=== PATIENT | male | born 1985 | race Two or more races ===

== ENCOUNTER 2022-11-09 10:20 | Inpatient (IN) ==
[2022-11-09] MEDS ORDERED: SODIUM CHLORIDE 0.9% 500 ML IV STA (10:28)
--- NOTE | 2022-11-09 10:38 | Emergency Department Note ---
Impression & Plan Acute appendicitis with localized peritonitis, Ileus due to infection, EVON (acute kidney injury) ED Provider Note Provider: Jules Hernandez MD DATE OF SERVICE: 11/09/2022 CHIEF COMPLAINT: Abdominal pain, nausea vomiting diarrhea HISTORY OF PRESENT ILLNESS: Patient is a 37-year-old gentleman senting here with referred from the [facility] today due to mid to lower abdominal discomfort developing over the past 4 days. Was following with the [facility] due to elevated blood pressure noted last week on exam. Has been trying to change and improve his diet. States Sunday started with epigastric pain with some radiation to the left lower abdomen. Then about a been constipated took a laxative. Has been having daily none bloody diarrhea since and having episodes of nausea and vomiting. No recent travel reported. Pain has improved some. Checked in again with the [facility] doctors today who did blood work and an x- ray and given some dilation the x-ray as well as an elevated white blood cell count was sent here for further testing. Denies any trauma. Denies significant urinary symptoms. Did use a bit of Aleve for pain which has helped a little bit. No significant testicular pain reported. PAST MEDICAL HISTORY: As noted above MEDICATIONS: Not on current home medications SOCIAL HISTORY: , lives at home PHYSICAL EXAM: GENERAL: alert and oriented in no acute distress on stretcher Head: normocephalic and atraumatic EYES: No injection, discharge or icterus. NECK: Trachea midline. LUNGS: Airway patent. No retractions. Breath sounds clear with good air entry bilaterally. HEART: Regular rate and rhythm. No chest wall tenderness ABDOMEN: Soft mildly diffusely tender and somewhat bloated. No masses appreciated. SKIN: Acyanotic, warm, slightly diaphoretic without rashes EXTREMITIES: Without swelling, tenderness or deformity NEUROLOGICAL: No focal deficits. No aphasia. No facial droop or slurred speech. EK bpm normal sinus rhythm. No PVC or PAC. No acute ST segment elevation with some inferior lateral T wave flattening and inversions noted. QTc 444. CONTINUOUS CARDIAC MONITORING: was ordered and showed a heart rate of 80s-90s bpm in normal sinus rhythm PDMP was checked without noted issue. Patient's laboratory studies and imaging reviewed. Differential includes Appendicitis, testicular torsion, infections, diverticulitis, UTI, obstruction, mesenteric ischemia, aortic pathology, inflammatory bowel disease, renal colic, PUD, pancreatitis, biliary pathology, hernia, volvulus, constipation, as well as other pathologies. IMPRESSION/MEDICAL DECISION MAKING: Discussed with case management obtained epic [facility] [facility] records from today including blood work with a CBC today showing white count of 19. Will send for CT scan given his pain complaints and the low white blood cell count. Given some IV fluid for hydration as he not been eating or drinking as well according to his . Pain has been decreasing but given the leukocytosis concern obviously for intra-abdominal process. Blood work here confirms a leukocytosis of almost 18 without anemia. Normal platelet count. Slight hyponatremia of 131 with an elevated creatinine of 2.35 which is new in nature. CT scan changed to noncontrast. No evidence of hepatitis or pancreatitis based on laboratory studies. EKG and troponin sent with some nonspecific T wave changes on EKG and normal troponin. Doubt ACS. CT scan does return with evidence of mid to distal appendicitis likely as well as some reactive ileal dilation and possible small bowel obstruction and in this clinical context question some component of ileus related to the inflammation. Discussed with the general surgery team. They evaluated him and took him to the OR for further care. DIAGNOSIS: Acute appendicitis, acute kidney injury, ileus DISPOSITION: General surgery evaluated and took him to the OR for further care. Past Med/Surg History Medical History Acute appendicitis with localized peritonitis Ileus due to infection Morbid obesity Social History Smoking Status: Current every day smoker Tobacco Type: Cigarettes Preferred Language: Uzbek Feels Safe at Home: Yes Allergies Allergies Allergy/AdvReac Type Severity Reaction Status Date / Time No Known Drug Allergies AdvReac Verified 11/09/22 12:35 Results & Data (ED) Vital Signs Vital Signs - 24 hr 11/09/22 10:22 11/09/22 10:29 11/09/22 10:50 Temperature 36.6 C Temperature Source Oral Pulse Rate 99 H Pulse Rate [Apical] 94 H Pulse Rate [Finger] Pulse Rhythm [Finger] Pulse Strength [Finger] Respiratory Rate 20 18 Respiratory Effort / Characteristics Non-Labored Respiratory Depth Normal Respiratory Pattern Regular Blood Pressure 139/94 Blood Pressure [Left Arm] 152/94 H Blood Pressure Mean 109 Blood Pressure Mean [Left Arm] 113 Blood Pressure Position [Left Arm] Pulse Oximetry 98 98 98 Oxygen Delivery Method Room Air Room Air Room Air Sepsis Recent Fever Within 48 Hours No Sepsis New/Unexplained Change in Mental Status No Sepsis Action Taken by Nursing No Action Required 11/09/22 12:23 11/09/22 12:36 11/09/22 13:15 Temperature 37 C Temperature Source Oral Pulse Rate 89 Pulse Rate [Apical] 92 H Pulse Rate [Finger] 83 Pulse Rhythm [Finger] Regular Pulse Strength [Finger] Normal Respiratory Rate 18 18 Respiratory Effort / Characteristics Non-Labored Spontaneous Respiratory Depth Normal Respiratory Pattern Regular Blood Pressure Blood Pressure [Left Arm] 152/87 H 155/88 H Blood Pressure Mean Blood Pressure Mean [Left Arm] 108 110 Blood Pressure Position [Left Arm] Sitting Pulse Oximetry 97 97 Oxygen Delivery Method Room Air Room Air Sepsis Recent Fever Within 48 Hours Sepsis New/Unexplained Change in Mental Status Sepsis Action Taken by Nursing Laboratory Data 11/09/22 10:45 11/09/22 10:45 Lab Results 11/09/22 11/09/22 11/09/22 Range/Units 10:45 10:45 11:24 WBC 17.99 H (4.8-10.8) K/ul RBC 6.43 H (4.70-6.10) M/uL Hgb 15.5 (14.0-18.0) g/dl Hct 47.3 (42.0-52.0) % MCV 73.6 L (80.0-100.0) fL MCH 24.1 L (25.0-34.0) pg MCHC 32.8 (32.0-36.0) g/dL RDW Std Deviation 37.3 (36.4-46.3) fL RDW Coeff of Jossie 15.0 H (11.5-14.5) % Plt Count 249 (130-400) K/uL MPV 8.6 L (9.4-12.4) fL Immature Gran % (Auto) 0.6 % Neut % (Auto) 87.1 % Lymph % (Auto) 5.6 % [place] % (Auto) 6.3 % Eos % (Auto) 0.1 % Baso % (Auto) 0.3 % Neut # (Auto) 15.66 H (1.40-6.50) K/uL Lymph # (Auto) 1.01 L (1.2-3.4) K/uL [place] # (Auto) 1.14 H (0.11-0.59) K/uL Eos # (Auto) 0.02 (0-0.50) K/uL Baso # (Auto) 0.05 (0-0.2) K/uL Immature Gran # (Auto) 0.11 (0.01-0.20) K/uL Sodium 131 L (136-145) mmol/L Potassium 4.4 (3.5-5.1) mmol/L Chloride 94 L (98-107) mmol/L Carbon Dioxide 26 (21-32) mmol/L Anion Gap 11 (3-11) BUN 26 H (6-23) mg/dl Creatinine 2.35 H (0.6-1.4) mg/dl Est Cr Clr Drug Dosing 58.0 ml/min Est GFR ( Amer) 39.2 ml/min Est GFR (Non-Af Amer) 33.8 ml/min BUN/Creatinine Ratio 11.1 (10-20) Glucose 130 H (70-99(Fasting)) mg/dl Calcium 10.2 (8.6-10.3) mg/dl Total Bilirubin 0.9 (0.2-1.0) mg/dl AST 11 L (13-39) U/L ALT 13 (7-52) U/L Alkaline Phosphatase 73 (34-104) U/L Troponin I High Sens 11.6 (0-20) pg/ml Total Protein 8.3 (6.0-8.3) gm/dl Albumin 4.5 (3.4-5.0) gm/dl Globulin 3.8 (2.5-4.0) gm/dl Albumin/Globulin Ratio 1.2 (0.9-2) Lipase 4 L (11-82) U/L SARS-CoV-2, RNA, NAAT NEGATIVE (NEGATIVE) Administered Medications Discontinued Medications Sodium Chloride (Nss) 500 mls @ 999 mls/hr IV .Q31M STA Stop: 11/09/22 10:58 Last Infusion: 11/09/22 11:30 Dose: 0 mls/hr Documented By: Admin: 11/09/22 10:51 Dose: 999 mls/hr Documented By: OL Sodium Chloride (Nss 1000ml) 1,000 mls @ 999 mls/hr IV .Q1H1M ONE Stop: 11/09/22 13:17 Last Admin: 11/09/22 12:23 Dose: 999 mls/hr Documented By: OL Imaging Data Radiologist's Impression: Abdomen/Pelvis CT 11/09/22 11:[address] WITHOUT CONTRAST CT DOSE: 1767.01 mGy.cm HISTORY: Right lower quadrant pain, elevWBC, EVON, n/v/d TECHNIQUE: Multiaxial CT images of the abdomen and pelvis were performed without contrast. A dose lowering technique was utilized adhering to the principles of ALARA. COMPARISON STUDY: None. FINDINGS: Small right basilar linear densities consistent with subsegmental atelectasis. The left lung base is clear. No pneumoperitoneum. No pneumatosis. No acute fractures identified. Mild hepatic steatosis. The unenhanced gallbladder, pancreas, spleen, adrenal glands, and left kidney are unremarkable. There are 2 hypodense lesions within the right kidney measuring up to 1 cm. These are incompletely characterized on this noncontrast study but statistically represent cysts. Normal caliber abdominal aorta. There is a left circumaortic renal vein. No retroperitoneal or pelvic lymphadenopathy. The bladder is unremarkable. No pelvic free fluid. Inflammatory changes/fat stranding noted within the right lower quadrant. There is suggestion of a small appendicolith within the base of the appendix on image 267. The mid to distal appendix is fluid-filled and distended up to 12 mm. There is mild periappendiceal inflamm atory change. Therefore, this likely represents an acute appendicitis. Mild thickening of multiple distal ileal loops within the right lower quadrant which may be reactive to the acute appendicitis. One of the thickened distal ileal loops on image 286 within the right lower quadrant results in the transition point of the small bowel obstruction. The bowel proximal to this transition point is distended and filled with gas and fluid measuring up to 4.4 cm in diameter. IMPRESSION: 1. There is suggestion of a small appendicolith within the base of the appendix. The mid to distal appendix is fluid-filled and distended up to 12 mm. There is mild periappendiceal inflammatory change. Therefore, this likely represents an acute appendicitis. 2. Mild thickening of multiple distal ileal loops within the right lower quadrant which may be reactive to the acute appendicitis. One of the thickened distal ileal loops within the right lower quadrant results in the transition point of the small bowel obstruction. ACT 112: Negative or not required by law. Electronically signed by: Irving Shi M.D. 11/09/2022 12:10 PM Discharge Plan Visit Data Chief Complaint: Abdominal Pain Stated Complaint: ABDOMINAL PAIN ED Provider: Jules Hernandez Discharge Problem: Acute appendicitis with localized peritonitis, Ileus due to infection, EVON (acute kidney injury) Patient Disposition: Being Evaluated by Surgeon
[2022-11-09 10:59] LABS: Basophils # (auto) 0.05 K/uL (0-0.2); Basophils % (auto) 0.3 %; Eosinophils # (auto) 0.02 K/uL (0-0.50); Eosinophils % (auto) 0.1 %; Hematocrit (blood only) 47.3 % (42.0-52.0); Hemoglobin 15.5 g/dl (14.0-18.0); Immature Granulocytes # (auto) 0.11 K/uL (0.01-0.20); Immature Granulocytes % (auto) 0.6 %; Lymphocytes # (auto) 1.01 K/uL (1.2-3.4); Lymphocytes % (auto) 5.6 %; Mean Corpuscular Hemoglobin 24.1 pg (25.0-34.0); Mean Corpuscular Hgb Conc 32.8 g/dL (32.0-36.0); Mean Corpuscular Volume 73.6 fL (80.0-100.0); Mean Platelet Volume 8.6 fL (9.4-12.4); Monocytes # (auto) 1.14 K/uL (0.11-0.59); Monocytes % (auto) 6.3 %; Neutrophils # (auto) 15.66 K/uL (1.40-6.50); Neutrophils % (auto) 87.1 %; Platelet Count 249 K/uL (130-400); RDW Standard Deviation 37.3 fL (36.4-46.3); Red Blood Count 6.43 M/uL (4.70-6.10); White Blood Count 17.99 K/ul (4.8-10.8)
[2022-11-09 11:13] LABS: Albumin Globulin Ratio 1.2 (0.9-2); Albumin Level 4.5 gm/dl (3.4-5.0); BUN Creatinine Ratio 11.1 (10-20); Bilirubin,Total 0.9 mg/dl (0.2-1.0); Calcium 10.2 mg/dl (8.6-10.3); Est GFR (African American) 39.2 ml/min; Est GFR (Non-African American) 33.8 ml/min; Globulin 3.8 gm/dl (2.5-4.0); Potassium 4.4 mmol/L (3.5-5.1); Total Protein 8.3 gm/dl (6.0-8.3)
[2022-11-09 11:19] LABS: Troponin I High Sensitivity 11.6 pg/ml (0-20)
--- NOTE | 2022-11-09 12:11 | CT Scan Report ---
ABDOMEN AND PELVIS CT WITHOUT CONTRAST CT DOSE: 1767.01 mGy.cm HISTORY: Right lower quadrant pain, elevWBC, EVON, n/v/d TECHNIQUE: Multiaxial CT images of the abdomen and pelvis were performed without contrast. A dose lo wering technique was utilized adhering to the principles of ALARA. COMPARISON STUDY: None. FINDINGS: Small right basilar linear densities consistent with subsegmental atelectasis. The left alcon g base is clear. No pneumoperitoneum. No pneumatosis. No acute fractures identified. Mild hepatic isidro atosis. The unenhanced gallbladder, pancreas, spleen, adrenal glands, and left kidney are unremarkabl e. There are 2 hypodense lesions within the right kidney measuring up to 1 cm. These are incompletely characterized on this noncontrast study but statistically represent cysts. Normal caliber abdominal aorta. There is a left circumaortic renal vein. No retroperitoneal or pelvic lymphadenopathy. The emanuel dder is unremarkable. No pelvic free fluid. Inflammatory changes/fat stranding noted within the right lower quadrant. There is suggestion of a small appendicolith within the base of the appendix on imag e 267. The mid to distal appendix is fluid-filled and distended up to 12 mm. There is mild periappend iceal inflammatory change. Therefore, this likely represents an acute appendicitis. Mild thickening o f multiple distal ileal loops within the right lower quadrant which may be reactive to the acute appe ndicitis. One of the thickened distal ileal loops on image 286 within the right lower quadrant result s in the transition point of the small bowel obstruction. The bowel proximal to this transition point is distended and filled with gas and fluid measuring up to 4.4 cm in diameter. IMPRESSION: 1. There is suggestion of a small appendicolith within the base of the appendix. The mid to distal ap pendix is fluid-filled and distended up to 12 mm. There is mild periappendiceal inflammatory change. Therefore, this likely represents an acute appendicitis. 2. Mild thickening of multiple distal ileal loops within the right lower quadrant which may be reacti ve to the acute appendicitis. One of the thickened distal ileal loops within the right lower quadrant results in the transition point of the small bowel obstruction. ACT 112: Negative or not required by law. Electronically signed by: Irving Shi M.D. 11/09/2022 12:10 PM
[2022-11-09] MEDS ORDERED: SODIUM CHLORIDE 0.9% 1000ML 1,000 ML IV ONE ×2 (12:17→12:29)
[2022-11-09] MEDS ORDERED: PIPERACILLIN/TAZOBACTAM 4.5 GM/120 ML BAG IV ONE (12:29)
--- NOTE | 2022-11-09 12:29 | Electrocardiogram Report ---
Test Reason : Blood Pressure : / mmHG Vent. Rate : 093 BPM Atrial Rate : 093 BPM P-R Int : 142 ms QRS Dur : 094 ms QT Int : 354 ms P-R-T Axes : 041 043 134 degrees QTc Int : 440 ms Normal sinus rhythm Left atrial enlargement Abnormal ECG No previous ECGs available Confirmed by Sylvester Branch ([id number]) on 11/09/2022 12:28:59 PM Referred By: Carlos Lynch Confirmed By:Sylvester Branch
[2022-11-09] MEDS ORDERED: fentaNYL citrate PF 100 MCG/2 ML VIAL ONE ×3 (12:48→15:30)
[2022-11-09] MEDS ORDERED: MIDAZOLAM HCL 1 MG/ML 2ML VIAL ONE (12:48)
[2022-11-09] MEDS ORDERED: SUCCINYLCHOLINE CHLORIDE 20 MG/ML 10 ML VIAL IV ONE (12:58)
[2022-11-09] MEDS ORDERED: LIDOCAINE 2% MPF LOCAL 5 ML VIAL ONE (12:58)
[2022-11-09] MEDS ORDERED: ONDANSETRON INJ 2 MG/ML 2 ML VIAL ONE (12:58)
[2022-11-09] MEDS ORDERED: DEXAMETHASONE SOD INJ 4 MG/ML VIAL ONE (12:58)
[2022-11-09] MEDS ORDERED: ROCURONIUM BROMIDE 10 MG/ML 5 ML VIAL IV ONE ×3 (12:58→14:54)
[2022-11-09] MEDS ORDERED: PROPOFOL IV EMULSION 10 MG/ML 20 ML VIAL IV ONE (12:58)
--- NOTE | 2022-11-09 13:02 | History & Physical Report ---
Date of Service November 09, 2022 Assessment & Plan (1) Acute appendicitis with localized peritonitis: Plan: 37 morbidly obese male with appendicitis. Reactive ileus vs obstruction. Some concern for perforation. plan for laparoscopic appendectomy risks discussed to include but not limited to bleeding, infection, open surgery, abscess, damage to surrounding structures, need for future or more extensive surgery, prolonged ileus, and risks of anesthesia. pre op abx will keep overnight, possibly longer (2) Morbid obesity: (3) Ileus due to infection: History of Present Illness Primary Care Provider: Carlos Lynch PA-C 37 y/o obese male presented with abdominal pain. Started Sunday, worsened over past few days. Some nausea. Outpatient eval at [facility] showed kub with dilated bowel and wbc 19, referred to ED. No prior surgeries, no prior episodes. BMI 41. Last ate a tangerine before 9 am. Allergies Allergy/AdvReac Type Severity Reaction Status Date / Time No Known Drug Allergies AdvReac Verified 11/09/22 12:35 Past Med/Surg History Medical History (Updated 11/09/22 @ 12:59 by Shaheed Bray DO, FACS) Acute appendicitis with localized peritonitis Ileus due to infection Morbid obesity Social History Smoking Status: Current every day smoker Tobacco Type: Cigarettes Preferred Language: Jordanian Feels Safe at Home: Yes Physical Exam Constitutional: WD/WN, vitals as above + morbidly obese Respiratory: normal respiratory effort, lungs clear to auscultation Cardiovascular: RRR, no murmur, no edema Gastrointestinal (Abdomen): Percussion/Palpation: + abdomen tender (RLQ) and abdomen soft; no guarding, abdomen not rigid and no hernia Results & Data Results & Data Vital Signs (Past 12 Hours) Vital Signs Temp Pulse Pulse Resp BP BP Pulse Ox 11/09/22 12:36 89 11/09/22 12:23 92 H 18 152/87 H 97 11/09/22 10:50 94 H 18 152/94 H 98 11/09/22 10:29 98 11/09/22 10:22 36.6 C 99 H 20 139/94 98 O2 Del Method 11/09/22 12:36 11/09/22 12:23 Room Air 11/09/22 10:50 Room Air 11/09/22 10:29 Room Air 11/09/22 10:22 Room Air Laboratory Results Laboratory Results - last 24 hr 11/09/22 11/09/22 11/09/22 10:45 10:45 11:24 WBC 17.99 H RBC 6.43 H Hgb 15.5 Hct 47.3 MCV 73.6 L MCH 24.1 L MCHC 32.8 RDW Std Deviation 37.3 RDW Coeff of Jossie 15.0 H Plt Count 249 MPV 8.6 L Immature Gran % (Auto) 0.6 Neut % (Auto) 87.1 Lymph % (Auto) 5.6 [place] % (Auto) 6.3 Eos % (Auto) 0.1 Baso % (Auto) 0.3 Neut # (Auto) 15.66 H Lymph # (Auto) 1.01 L [place] # (Auto) 1.14 H Eos # (Auto) 0.02 Baso # (Auto) 0.05 Immature Gran # (Auto) 0.11 Sodium 131 L Potassium 4.4 Chloride 94 L Carbon Dioxide 26 Anion Gap 11 BUN 26 H Creatinine 2.35 H Est Cr Clr Drug Dosing 58.0 Est GFR ( Amer) 39.2 Est GFR (Non-Af Amer) 33.8 BUN/Creatinine Ratio 11.1 Glucose 130 H Calcium 10.2 Total Bilirubin 0.9 AST 11 L ALT 13 Alkaline Phosphatase 73 Troponin I High Sens 11.6 Total Protein 8.3 Albumin 4.5 Globulin 3.8 Albumin/Globulin Ratio 1.2 Lipase 4 L SARS-CoV-2, RNA, NAAT NEGATIVE Diagnostic Findings personally reviewed CT and interpreted myself, agree with appendicitis, reactive ileus. Do feel this may represent small perforation. ABDOMEN AND PELVIS CT WITHOUT CONTRAST CT DOSE: 1767.01 mGy.cm HISTORY: Right lower quadrant pain, elevWBC, EVON, n/v/d TECHNIQUE: Multiaxial CT images of the abdomen and pelvis were performed without contrast. A dose lowering technique was utilized adhering to the principles of ALARA. COMPARISON STUDY: None. FINDINGS: Small right basilar linear densities consistent with subsegmental atelectasis. The left lung base is clear. No pneumoperitoneum. No pneumatosis. No acute fractures identified. Mild hepatic steatosis. The unenhanced gallbladder, pancreas, spleen, adrenal glands, and left kidney are unremarkable. There are 2 hypodense lesions within the right kidney measuring up to 1 cm. These are incompletely characterized on this noncontrast study but statistically represent cysts. Normal caliber abdominal aorta. There is a left circumaortic renal vein. No retroperitoneal or pelvic lymphadenopathy. The bladder is unremarkable. No pelvic free fluid. Inflammatory changes/fat stranding noted within the right lower quadrant. There is suggestion of a small appendicolith within the base of the appendix on image 267. The mid to distal appendix is fluid-filled and distended up to 12 mm. There is mild periappendiceal inflammatory change. Therefore, this likely represents an acute appendicitis. Mild thickening of multiple distal ileal loops within the right lower quadrant which may be reactive to the acute appendicitis. One of the thickened distal ileal loops on image 286 within the right lower quadrant results in the transition point of the small bowel obstruction. The bowel proximal to this transition point is distended and filled with gas and fluid measuring up to 4.4 cm in diameter. IMPRESSION: 1. There is suggestion of a small appendicolith within the base of the appendix. The mid to distal appendix is fluid-filled and distended up to 12 mm. There is mild periappendiceal inflammatory change. Therefore, this likely represents an acute appendicitis. 2. Mild thickening of multiple distal ileal loops within the right lower quadrant which may be reactive to the acute appendicitis. One of the thickened distal ileal loops within the right lower quadrant results in the transition point of the small bowel obstruction. ACT 112: Negative or not required by law. PG Care Time/CCT Total # of Minutes Spent Total Time Spent with Patient: Total time spent is greater than 50% in coordination of care (as documented) at patient's floor/unit and/or counseling patient: Coding Level of Care Code 07193 INT INP/OBS CARE MIN Diagnoses Acute appendicitis with localized peritonitis K35.30 Morbid obesity E66.01 Ileus due to infection K56.7; B99.9
[2022-11-09] MEDS ORDERED: BUPIVACAINE 0.5 % 5 MG/1 ML MPF 30ML VIAL ONE (13:05)
--- NOTE | 2022-11-09 13:17 | Anesthesiology Consultation ---
Date of Service November 09, 2022 Assessment & Plan Chart Review Chart Review: Acceptable Risk for Surgery Consults Requested none ASA [id number] Proposed Anesthesia Anesthesia Type: General Risk / Benefits Reviewed With: PT / POA / Parent / Guardian, Accepts Plan and Informed Consent Obtained History Surgery Operation Date: 11/09/22 17:45 Proposed Procedures p Laparoscopic Appendectomy - Shaheed Bray DO, FACS Height/Weight Height: 5 ft 10 in Weight: 131 kg Allergies Allergy/AdvReac Type Severity Reaction Status Date / Time No Known Drug Allergies AdvReac Verified 11/09/22 12:35 NPO Date Last Intake of Fluids: 11/09/22 Time Last Intake of Fluids: 09:30 Date Last Intake of Solids: 11/09/22 Time Last Intake of Solids: 09:30 Past Medical History Medical History Acute appendicitis with localized peritonitis Ileus due to infection Morbid obesity Exercise / Class Metabolic Activity II 4-5 Yardwork/Stairs/Walk up hill Past Anesthesia History No Hx of Anesthesia Complications and No Family Hx of Anesthesia Complications History of PONV No Hx of PONV and No Hx of Motion Sickness Social History Smoking Status: Current every day smoker Physical Exam Vital Signs Last Vital Signs Temp 97.9 F 11/09/22 10:22 Pulse 89 11/09/22 12:36 Resp 18 11/09/22 12:23 BP 152/87 H 11/09/22 12:23 Pulse Ox 97 11/09/22 12:23 O2 Del Method Room Air 11/09/22 12:23 ENMT Mouth: no dentition abnormality Thyromental Distance: > or= 3.5 Finger Breadths Mallampati Class: II Neck normal visual inspection Respiratory normal respiratory effort Auscultation: lungs clear to auscultation bilaterally Cardiovascular Rate/Rhythm: regular rate and regular rhythm Testing Laboratory Results 11/09/22 10:45 11/09/22 10:45
[2022-11-09] MEDS ORDERED: ATROPINE SULFATE 0.1 MG/ML 10ML SYR IV PRN (13:18)
[2022-11-09] MEDS ORDERED: ePHEDrine sulfate 50 MG/ML AMP IV PRN (13:18)
[2022-11-09] MEDS ORDERED: ONDANSETRON INJ 2 MG/ML 2 ML VIAL IV PRN ×2 (13:18→16:56)
[2022-11-09] MEDS ORDERED: fentaNYL citrate PF 100 MCG/2 ML VIAL IV PRN (13:18)
[2022-11-09] MEDS ORDERED: SUGAMMADEX SODIUM 200 MG/2 ML VIAL IV ONE (14:53)
[2022-11-09] MEDS ORDERED: PHENYLEPHRINE 100MCG/ML 5ML SYR ONE (15:06)
[2022-11-09] MEDS ORDERED: KETOROLAC 30 MG/ML VIAL ONE (15:31)
--- NOTE | 2022-11-09 15:50 | Operative Report ---
PG Post Operative Report Pre & Post Diagnosis Operation Date: 11/09/22 17:45 Pre-Op Diagnosis: Acute appendicitis Post-Op Diagnosis: Perforated Appendicitis with peritonitis I identified the patient and participated in the time-out.: Yes Procedure Operation Date: 11/09/22 17:45 Actual Procedures p Laparoscopic Appendectomy(Not Applicable) - Shaheed Bray DO, FACS Surgeon Shaheed Bray DO, FACS [employer] Lead Worker Joycelyn Gusman Estimated Blood Loss 10 Findings Consistent with Post-Op Diagnosis Contained perforated appendicitis. Evidence of peritonitis in the right lower quadrant and along the small bowel. Resolved ileus versus bowel obstruction. Appendix necrotic, avulsed the base. Cannot discern a safe place to staple, distal appendix removed. MATTIE drain placed in right lower quadrant. Specimens Appendix Drains 10 mm MATTIE right lower quadrant Anesthesia Type General Complications none Disposition Accompanied Patient To Recovery: No Disposition: Recovery Room Indications 37-year-old male with 4 days of abdominal pain with CT scan that suggested acute appendicitis with resultant obstruction and possible perforation, plan for laparoscopic appendectomy. The risks of the procedure were discussed, all questions were answered, and the patient agreed to proceed with surgery as planned. Description of Procedure The patient was properly identified, consented, and taken to the operating room where he was placed in the supine position. General endotracheal anesthesia was induced. SCDs and a safety belt were placed. Preoperative antibiotics were administered. A Lemus catheter was placed. An OG tube was placed, this was later replaced with an NG tube. The patient's abdomen was prepped and draped in the standard sterile fashion. Surgical timeout was performed and all parties were in agreement that this was the correct patient and procedure to be performed and we continued as planned. An incision was made superior to the left of the umbilicus and the Veress needle was inserted. Saline drop test confirmed entry into the abdomen. The abdomen was insufflated carbon dioxide to the patient tolerated without incident. The Veress needle was removed and the abdomen was entered using a 5 mm port in the Optiview technique. The introducer was removed and the abdomen was inspected. There was fibrinous exudate and significant inflammation in the right lower quadrant and right mid abdomen. There is evidence of peritonitis in this area and irritation to the small bowel. 12 mm port was placed in the left lower quadrant. A 5 mm port was placed in the low midline with care not to damage the bladder. Later in the surgery a 5 mm port was placed in the right upper quadrant as an additional retractor. The patient was placed in the Trendelenburg position and rotated towards the left. The small bowel and colon was gently teased away from the right lower quadrant. There was multiple areas of purulent drainage and fibrinous exudate. There is no obvious fecal material. The small bowel was swept away from the right lower quadrant to expose the base of the cecum. This was significantly inflamed. The omentum was teased away with blunt dissection. The right lower quadrant was irrigated. The appendix was identified and was necrotic. During gentle dissection it avulsed at the base. There was no evidence of spillage of stool. The mesoappendix was divided with the Sonicision. I attempted to carefully dissect away a certain area of the base but there was no evidence of appendiceal remnant at the cecum. The cecum was submerged underneath saline and compressed and there was no evidence of a leak of the avulsed appendix. The abdomen was copiously irrigated and hemostasis was confirmed. Some of the fibrinous exudate along the abdominal wall was peeled away. Pelvis was irrigated and there was no evidence of fluid collection. Right upper quadrant was irrigated as well. A 10 mm MATTIE drain was placed in the right lower quadrant and exited through the right upper quadrant port site. This secured in place with a 2-0 nylon suture. The appendix was placed in Endo Catch bag and removed from the left lower quadrant incision. The fascia of the 12 mm port site in the left lower quadrant was closed with a [id number] 0 Vicryl suture utilizing the Saeed-Luis Enrique device. The 5 mm ports were then removed and the abdomen was allowed to collapse. The wounds were irrigated, and the skin of all ports was closed with 4-0 Monocryl subcuticular sutures. Dermabond was placed over the wounds. A drain sponge was placed over the exit of the MATTIE site. The patient was extubated in the operating room and taken to the PACU where he recovered without apparent incident. His NG tube and Lemus catheter remained in place. All sponge, instrument and needle counts were correct at the conclusion of the procedure. The patient tolerated the procedure well. The physician's family law legal assistant was present and scrubbed for the entire to the procedure. She was critical in positioning the patient, prepping and draping, retraction and exposure, driving the laparoscope, removal of the appendix, and placement of the drain, closure the incisions, and placement of the dressings. I attest to the content of the Intraoperative Record and any orders documented therein. Any exceptions are noted below.
--- NOTE | 2022-11-09 16:40 | Anesthesiology Progress Note ---
Date of Service November 09, 2022 Anesthesia Post Procedure Vital Signs Vital Signs: Temp Pulse Pulse Pulse Resp BP BP 11/09/22 16:30 88 15 144/80 H 11/09/22 16:20 84 14 136/78 11/09/22 16:10 83 13 138/72 11/09/22 16:00 96.8 F L 91 H 13 136/83 11/09/22 13:15 98.6 F 83 18 155/88 H 11/09/22 12:36 89 11/09/22 12:23 92 H 18 152/87 H 11/09/22 10:50 94 H 18 152/94 H 11/09/22 10:29 11/09/22 10:22 97.9 F 99 H 20 139/94 Pulse Ox O2 Del Method O2 Flow Rate 11/09/22 16:30 98 Room Air 11/09/22 16:20 96 Room Air 11/09/22 16:10 100 Oxymask 10 11/09/22 16:00 97 Oxymask 10 11/09/22 13:15 97 Room Air 11/09/22 12:36 11/09/22 12:23 97 Room Air 11/09/22 10:50 98 Room Air 11/09/22 10:29 98 Room Air 11/09/22 10:22 98 Room Air Pain Intensity Right Abdomen: Pain Intensity: 4 Transfer of Care Handoff Completed per policy Notes Mental Status: alert / awake / arousable and participated in evaluation Patient Amnestic to Procedure: Yes Nausea / Vomiting: adequately controlled Pain: adequately controlled Airway Patency, RR, SpO2: stable & adequate BP & HR: stable & adequate Hydration State: stable & adequate Anesthetic Complications: no major complications apparent and Pt Satisfied with anesthetic care
--- NOTE | 2022-11-09 16:46 | XRay Report ---
KUB CLINICAL HISTORY: eval ngt placement COMPARISON STUDY: CT of the abdomen and pelvis performed earlier today. FINDINGS: The tip of the nasogastric tube is within the gastric fundus. Several loops of dilated smal l bowel are noted, as shown on CT. Linear left lower lung density favors atelectasis. IMPRESSION: 1. Tip of nasogastric tube within the gastric fundus. 2. Evidence for a small bowel obstruction, as shown on CT. ACT 112: Negative or not required by law. Electronically signed by: Cristofer Gonzalez M.D. 11/09/2022 4:44 PM
[2022-11-09] MEDS ORDERED: MoRPHine SULFATE 2 MG/ML CARP IV PRN (16:56)
[2022-11-09] MEDS ORDERED: MoRPHine SULFATE 4 MG/ML 1 ML CARP\\VIAL IV PRN (16:56)
[2022-11-09] MEDS ORDERED: ACETAMINOPHEN 1,000 MG/100 ML VIAL IV SCH (17:15)
[2022-11-09] MEDS ORDERED: PIPERACILLIN/TAZOBACTAM 4.5 GM in DEXTROSE 5% 100 ML IV ONE (17:15)
[2022-11-09 19:04] LABS: Appearance Urine Turbid (Clear); Bacteria Urine Automated Negative (Negative); Bilirubin Urine Negative (Negative); Blood Urine 1+ (Negative); Color Urine Dark Yellow; Epithelial Cell Urine Auto >30 /lpf (0-5); Glucose Urine UA Negative (Negative); Ketones Urine Negative (Negative); Leukocyte Esterase Urine Negative (Negative); Nitrite Urine Negative (Negative); Protein Urine 1+ (Negative); Specific Gravity Urine 1.031 (1.000-1.030); Urobilinogen Urine Negative (Negative)
[2022-11-09] MEDS: LACTATED RINGER'S 1,000 ML IV SCH ×2 (19:21→22:52)
[2022-11-09 19:44] LABS: Cast Urine Automated 0 /lpf (0-5)
[2022-11-09] MEDS: PIPERACILLIN/TAZOBACTAM 4.5 GM in DEXTROSE 5% 100 ML IV SCH (20:19)
[2022-11-09] MEDS ORDERED: Nursing to Pharmacy Communication SCH (22:00)
[2022-11-10] MEDS: PIPERACILLIN/TAZOBACTAM 4.5 GM in DEXTROSE 5% 100 ML IV SCH ×3 (04:40→21:44)
[2022-11-10] MEDS: LACTATED RINGER'S 1,000 ML IV SCH ×3 (04:42→19:45)
[2022-11-10] MEDS: ACETAMINOPHEN 1,000 MG/100 ML VIAL IV SCH ×3 (06:20→21:44)
[2022-11-10 06:48] LABS: Basophils # (auto) 0.01 K/uL (0-0.2); Basophils % (auto) 0.1 %; Eosinophils # (auto) 0.04 K/uL (0-0.50); Eosinophils % (auto) 0.3 %; Hematocrit (blood only) 39.6 % (42.0-52.0); Hemoglobin 13.1 g/dl (14.0-18.0); Immature Granulocytes # (auto) 0.08 K/uL (0.01-0.20); Immature Granulocytes % (auto) 0.6 %; Lymphocytes % (auto) 5.7 %; Mean Corpuscular Hemoglobin 23.8 pg (25.0-34.0); Mean Corpuscular Hgb Conc 33.1 g/dL (32.0-36.0); Mean Platelet Volume 9.1 fL (9.4-12.4); Monocytes # (auto) 0.88 K/uL (0.11-0.59); Monocytes % (auto) 7.1 %; Neutrophils % (auto) 86.2 %; Platelet Count 232 K/uL (130-400); RDW Coefficient of Variation 14.3 % (11.5-14.5); RDW Standard Deviation 36.8 fL (36.4-46.3); White Blood Count 12.31 K/ul (4.8-10.8)
[2022-11-10 07:21] LABS: BUN Creatinine Ratio 20.8 (10-20); Calcium 8.1 mg/dl (8.6-10.3); Creatinine Clr Calc Pharmacy 81.1 ml/min; Est GFR (African American) 58.8 ml/min; Est GFR (Non-African American) 50.8 ml/min; Potassium 3.9 mmol/L (3.5-5.1)
--- NOTE | 2022-11-10 12:09 | Surgery Progress Note ---
Date of Service November 10, 2022 Assessment & Plan (1) Acute appendicitis with localized peritonitis: Plan: POD#1 lap appendectomy for perforated appendicitis. Sepsis with EVON on admission, resolving with abx, surgery, and fluids, also ileus from infx. no flatus cont ng until return of bowel function cont iv abx until wbc normalizes, afebrile x 24 hours home on 10 days oral abx keep drain, will remove in clinic KUB in am Dr[facility] Levin from [facility] surgery covering over weekend cont iv fluids will start lovenox and toradol when cr normal (2) Morbid obesity: (3) Ileus due to infection: (4) Sepsis with acute renal failure: (5) EVON (acute kidney injury): Admission and Anticipated Discharge Date Admission Date: November 09, 2022 Subjective POD#1 lap appendectomy for perforated appendicitis. Feeling better, sore in RLQ, wants ice chips. No flatus. Physical Exam Constitutional: WD/WN, vitals as above Respiratory: normal respiratory effort, lungs clear to auscultation Cardiovascular: RRR, no murmur, no edema Gastrointestinal (Abdomen): normal bowel sounds, soft, nontender, no hepatosplenomegaly Inspection/Auscultation: + abdominal surgical incision (no infection) and + abdominal surgical drain present (Serosanguineous drainage) Results & Data Vital Signs (Past 12 Hours) Vital Signs Temp Pulse Resp BP Pulse Ox O2 Del Method 11/10/22 11:30 76 18 142/74 H 97 Room Air 11/10/22 07:50 Room Air 11/10/22 07:00 36.9 C 78 18 140/80 96 Room Air 11/10/22 03:00 36.7 C 79 14 151/84 H 94 Room Air Laboratory Results Laboratory Results - last 24 hr 11/09/22 11/10/22 11/10/22 18:30 05:36 05:36 WBC 12.31 H RBC 5.50 Hgb 13.1 L Hct 39.6 L MCV 72.0 L MCH 23.8 L MCHC 33.1 RDW Std Deviation 36.8 RDW Coeff of Jossie 14.3 Plt Count 232 MPV 9.1 L Immature Gran % (Auto) 0.6 Neut % (Auto) 86.2 Lymph % (Auto) 5.7 [place] % (Auto) 7.1 Eos % (Auto) 0.3 Baso % (Auto) 0.1 Neut # (Auto) 10.60 H Lymph # (Auto) 0.70 L [place] # (Auto) 0.88 H Eos # (Auto) 0.04 Baso # (Auto) 0.01 Immature Gran # (Auto) 0.08 Sodium 139 Potassium 3.9 Chloride 95 L Carbon Dioxide 34 H Anion Gap 10 BUN 35 H Creatinine 1.68 H D Est Cr Clr Drug Dosing 81.1 Est GFR ( Amer) 58.8 Est GFR (Non-Af Amer) 50.8 BUN/Creatinine Ratio 20.8 H Glucose 118 H Calcium 8.1 L D Urine Color Dark Yellow Urine Appearance Turbid A Urine pH 5.0 Ur Specific Burns 1.031 H Urine Protein 1+ H Urine Glucose (UA) Negative Urine Ketones Negative Urine Blood 1+ H Urine Nitrite Negative Urine Bilirubin Negative Urine Urobilinogen Negative Ur Leukocyte Esterase Negative Urine WBC (Auto) 1-5 Urine RBC (Auto) 5-10 H U Hyaline Cast (Auto) 0 U Epithel Cells (Auto) >30 H Urine Bacteria (Auto) Negative PG Care Time/CCT Total # of Minutes Spent Total Time Spent with Patient: Total time spent is greater than 50% in coordination of care (as documented) at patient's floor/unit and/or counseling patient: Coding Level of Care Code 17675 Post Operative Follow-Up Diagnoses Acute appendicitis with localized peritonitis K35.30 Appendicitis abscess presence: without abscess Appendicitis gangrene presence: unspecified whether gangrene present Appendicitis perforation presence: unspecified whether perforation present Morbid obesity E66.01 Ileus due to infection K56.7; B99.9 Sepsis with acute renal failure A41.9; R65.20; N17.9 EVON (acute kidney injury) N17.9 (1) Acute appendicitis with localized peritonitis Appendicitis abscess presence: without abscess Appendicitis gangrene presence: unspecified whether gangrene present Appendicitis perforation presence: unspecified whether perforation present Qualified Code(s): K35.30 - Acute appendicitis with localized peritonitis, without perforation or gangrene
[2022-11-10] MEDS ORDERED: MELATONIN 3 MG TAB PO ONE (21:01)
[2022-11-11] MEDS: LACTATED RINGER'S 1,000 ML IV SCH ×3 (02:13→16:13)
[2022-11-11] MEDS: PIPERACILLIN/TAZOBACTAM 4.5 GM in DEXTROSE 5% 100 ML IV SCH ×3 (05:00→20:04)
[2022-11-11] MEDS: ACETAMINOPHEN 1,000 MG/100 ML VIAL IV SCH ×3 (05:00→21:35)
[2022-11-11 06:03] LABS: Basophils # (auto) 0.04 K/uL (0-0.2); Basophils % (auto) 0.4 %; Eosinophils # (auto) 0.32 K/uL (0-0.50); Eosinophils % (auto) 3.1 %; Hematocrit (blood only) 40.2 % (42.0-52.0); Hemoglobin 12.8 g/dl (14.0-18.0); Immature Granulocytes # (auto) 0.06 K/uL (0.01-0.20); Immature Granulocytes % (auto) 0.6 %; Lymphocytes # (auto) 0.74 K/uL (1.2-3.4); Lymphocytes % (auto) 7.1 %; Mean Corpuscular Hemoglobin 23.7 pg (25.0-34.0); Mean Corpuscular Hgb Conc 31.8 g/dL (32.0-36.0); Mean Corpuscular Volume 74.4 fL (80.0-100.0); Mean Platelet Volume 8.4 fL (9.4-12.4); Monocytes % (auto) 7.7 %; Neutrophils # (auto) 8.49 K/uL (1.40-6.50); Neutrophils % (auto) 81.1 %; Platelet Count 256 K/uL (130-400); RDW Coefficient of Variation 14.4 % (11.5-14.5); RDW Standard Deviation 38.5 fL (36.4-46.3); White Blood Count 10.45 K/ul (4.8-10.8)
[2022-11-11 06:16] LABS: BUN Creatinine Ratio 22.1 (10-20); Calcium 8.7 mg/dl (8.6-10.3); Creatinine Clr Calc Pharmacy 100.2 ml/min; Est GFR (Non-African American) 65.5 ml/min; Potassium 3.5 mmol/L (3.5-5.1)
--- NOTE | 2022-11-11 09:03 | XRay Report ---
KUB CLINICAL HISTORY: eval bowel/gas pattern s/p lap appy COMPARISON STUDY: CT of the abdomen and pelvis and KUB November 09, 2022. FINDINGS: Surgical drain is in place. Tip of nasogastric tube is within the gastric fundus or cardia. Multiple loops of moderately dilated gas-filled small bowel are again noted. Small bowel dilatation has slightly progressed. IMPRESSION: Moderate small bowel dilatation, slightly increased since prior exam. This could reflect a partial small bowel obstruction or postoperative ileus. ACT 112: Negative or not required by law. Electronically signed by: Cristofer Gonzalez M.D. 11/11/2022 9:01 AM
--- NOTE | 2022-11-11 12:52 | Surgery Progress Note ---
Date of Service November 11, 2022 Assessment & Plan (1) Acute appendicitis with localized peritonitis: Plan: POD#2 lap appendectomy for perforated appendicitis. Sepsis with EVON on admission, resolving with abx, surgery, and fluids, also ileus from infx. Positive flatus today Remove NG tube today Clear liquid diet cont iv abx until wbc normalizes, afebrile x 24 hours home on 10 days oral abx keep drain, will remove in clinic Probable home tomorrow (2) Morbid obesity: (3) Ileus due to infection: (4) Sepsis with acute renal failure: (5) EVON (acute kidney injury): Admission and Anticipated Discharge Date Admission Date: November 09, 2022 Subjective POD#2 lap appendectomy for perforated appendicitis. He wants the NG tube out. He has been passing flatus this morning. Physical Exam Gastrointestinal (Abdomen): normal bowel sounds, soft, nontender, no hepatosplenomegaly Inspection/Auscultation: + abdominal surgical incision (no infection) and + abdominal surgical drain present (Serosanguineous drainage) Results & Data Vital Signs (Past 12 Hours) Vital Signs Temp Pulse Resp BP Pulse Ox O2 Del Method 11/11/22 07:36 36.8 C 78 16 160/94 H 93 Room Air 11/11/22 05:24 37 C 76 18 153/92 H 94 Room Air 11/11/22 01:06 36.8 C 72 18 144/76 H 94 Room Air (1) Acute appendicitis with localized peritonitis Appendicitis abscess presence: without abscess Appendicitis gangrene presence: unspecified whether gangrene present Appendicitis perforation presence: unspecified whether perforation present Qualified Code(s): K35.30 - Acute appendicitis with localized peritonitis, without perforation or gangrene
[2022-11-11] MEDS ORDERED: hydrALAZINE HCL 20 MG/ML VIAL IV ONE (16:50)
[2022-11-11] MEDS ORDERED: hydrALAZINE HCL 20 MG/ML VIAL IV STA (18:12)
[2022-11-11] MEDS ORDERED: Nursing to Pharmacy Communication SCH (20:15)
[2022-11-11] MEDS ORDERED: LACTATED RINGER'S 1,000 ML IV SCH (20:15)
[2022-11-12] MEDS: LACTATED RINGER'S 1,000 ML IV SCH (04:00)
[2022-11-12] MEDS: PIPERACILLIN/TAZOBACTAM 4.5 GM in DEXTROSE 5% 100 ML IV SCH ×3 (04:00→20:31)
[2022-11-12 05:54] LABS: Basophils # (auto) 0.05 K/uL (0-0.2); Basophils % (auto) 0.5 %; Eosinophils # (auto) 0.37 K/uL (0-0.50); Eosinophils % (auto) 3.8 %; Hematocrit (blood only) 41.5 % (42.0-52.0); Hemoglobin 13.4 g/dl (14.0-18.0); Immature Granulocytes # (auto) 0.07 K/uL (0.01-0.20); Immature Granulocytes % (auto) 0.7 %; Lymphocytes # (auto) 0.76 K/uL (1.2-3.4); Lymphocytes % (auto) 7.9 %; Mean Corpuscular Hemoglobin 23.9 pg (25.0-34.0); Mean Corpuscular Hgb Conc 32.3 g/dL (32.0-36.0); Mean Platelet Volume 8.5 fL (9.4-12.4); Monocytes # (auto) 0.77 K/uL (0.11-0.59); Neutrophils # (auto) 7.66 K/uL (1.40-6.50); Neutrophils % (auto) 79.1 %; Platelet Count 293 K/uL (130-400); RDW Coefficient of Variation 14.7 % (11.5-14.5); Red Blood Count 5.61 M/uL (4.70-6.10); White Blood Count 9.68 K/ul (4.8-10.8)
[2022-11-12] MEDS: ACETAMINOPHEN 1,000 MG/100 ML VIAL IV SCH ×3 (06:00→20:31)
[2022-11-12 06:12] LABS: BUN Creatinine Ratio 17.7 (10-20); Est GFR (African American) 115.7 ml/min; Est GFR (Non-African American) 99.9 ml/min; Potassium 3.7 mmol/L (3.5-5.1)
[2022-11-12] MEDS ORDERED: hydrALAZINE HCL 20 MG/ML VIAL IV STA (07:49)
--- NOTE | 2022-11-12 11:08 | Surgery Progress Note ---
Date of Service November 12, 2022 Assessment & Plan (1) Acute appendicitis with localized peritonitis: Plan: POD#3 lap appendectomy for perforated appendicitis. Sepsis with EVON on admission, resolving with abx, surgery, and fluids, also ileus from infx. Positive bowel movements Advance diet as tolerated home on 10 days oral abx keep drain, will remove in clinic Issues with hypertension overnight. Spoke with patient, he is seeing his primary care physician about the hypertension. We will have him follow-up in the short-term with his primary care physician for this issue. Discharge to home later this afternoon. (2) Morbid obesity: (3) Ileus due to infection: (4) Sepsis with acute renal failure: (5) EVON (acute kidney injury): Admission and Anticipated Discharge Date Admission Date: November 09, 2022 Subjective POD#3 lap appendectomy for perforated appendicitis. Positive bowel movements. Tolerating diet. Physical Exam Gastrointestinal (Abdomen): normal bowel sounds, soft, nontender, no hepatosplenomegaly Inspection/Auscultation: + abdominal surgical incision (no infection) and + abdominal surgical drain present (Serosanguineous drainage) Results & Data Vital Signs (Past 12 Hours) Vital Signs Temp Pulse Resp BP BP Pulse Ox O2 Del Method 11/12/22 07:47 172/112 H 11/12/22 07:43 222/110 H 11/12/22 08:50 67 189/105 H 165/96 H 98 Room Air 11/12/22 07:44 36.9 C 67 20 212/113 H 179/114 H 97 Room Air (1) Acute appendicitis with localized peritonitis Appendicitis abscess presence: without abscess Appendicitis gangrene presence: unspecified whether gangrene present Appendicitis perforation presence: unspecified whether perforation present Qualified Code(s): K35.30 - Acute appendicitis with localized peritonitis, without perforation or gangrene
[2022-11-12] MEDS: hydrALAZINE HCL 20 MG/ML VIAL IV PRN ×3 (11:58→22:54)
--- NOTE | 2022-11-12 13:38 | Consultation ---
Date of Consultation November 12, 2022 Assessment & Plan (1) HTN (hypertension): (2) Acute appendicitis with localized peritonitis: (3) EVON (acute kidney injury): (4) HLD (hyperlipidemia): Plan HTN: -discussed different first line medications for HTN -will start the pt on losartan 50mg daily (starting today) -will adjust the dose depending on how pt response -A1C in the morning --- However if the BP improves (closer to the goal: ~130/80) after losartan dose pt can be discharged (tonight) with PCP follow up within 1 week Acute perforated appendicitis s/p laparoscopic removal: -pt is recovering well -Cr is back to normal range and hgb is stable -pain management per primary team EVON: -resolved HLD: -recent LDL was 138 - diet controlled History of Present Illness Requesting Physician: Dr. Levin Reason for Consultation: elevated BP Attending Physician: Shaheed Bray DO, FACS History of Present Illness Pt is a 37 y/o M with prior hx of HLD, elevated BP initially admitted for acute perforated appendicitis. Underwent laparoscopic removal of the appendix on 11/09/22. Consulted for persistent elevated BP. At bedside: pt denied any GARSIA, CP, SOB, N/V. -never taken any medication for HTN in the past -currently does not take any daily medication -Denied any ETOH use or illicit drug use. Allergies Allergy/AdvReac Type Severity Reaction Status Date / Time No Known Drug Allergies AdvReac Verified 11/09/22 12:35 Home Medications Medication Instructions Recorded Confirmed Type amoxicillin 875 mg-potassium 1 tab PO BID #20 tabs 11/11/22 Rx clavulanate 125 mg tablet oxycodone-acetaminophen 5 mg-325 1 - 2 tab PO .q4-6h PRN pain, for 11/11/22 Rx mg tablet (Percocet) initial therapy, max 6 tabs per day #15 tabs Patient History Medical History (Updated 11/12/22 @ 13:39 by Randee Hargrove MD) Acute appendicitis with localized peritonitis HLD (hyperlipidemia) Ileus due to infection Morbid obesity Sepsis with acute renal failure Family History Other Diabetes Hypertension Social History Smoking Status: Current every day smoker Tobacco Type: Cigarettes Hx Alcohol Use: Yes Alcohol type: wine Hx Substance Use: No Preferred Language: Croatian Communication Ability: Effective Visual Impairment: No Limitations Vp Patient Required: No Beliefs That Will Affect Care: None Current Living Situation: Family Feels Safe at Home: Yes Assistive Devices: None Review of Systems Review of Systems: At least 10 Review of systems were reviewed and all negative except as indicated in HPI Physical Exam Physical Exam: General:. NAD, well developed, well nourished, average body habitus HEENT:. Normocephalic and atraumatic, Normal Conjunctiva, EOMI, Sclera is non- icteric Lungs:. No signs of respiratory distress, CTA, no wheezing or crackles Heart:. Normal S1, S2, no murmur Abdominal:Drain in place, ND, soft, mild TTP at the incision sites, incisions are healing well MSK:. No deformities of UE and LE, No leg edema Psych:. AAOx3, normal affect Results & Data Vital Signs (Past 12 Hours) Vital Signs Temp Pulse Resp BP BP Pulse Ox O2 Del Method 11/12/22 11:51 199/113 H 174/108 H 11/12/22 11:46 65 210/103 H 192/110 H 99 Room Air 11/12/22 07:47 172/112 H 11/12/22 07:43 222/110 H 11/12/22 08:50 67 189/105 H 165/96 H 98 Room Air 11/12/22 07:44 36.9 C 67 20 212/113 H 179/114 H 97 Room Air Laboratory Results Short CBC 11/12/22 Range/Units 05:31 WBC 9.68 (4.8-10.8) K/ul Hgb 13.4 L (14.0-18.0) g/dl Hct 41.5 L (42.0-52.0) % Plt Count 293 (130-400) K/uL BMP 11/12/22 05:31 Sodium 137 Potassium 3.7 Chloride 98 Carbon Dioxide 28 BUN 17 Creatinine 0.96 D Glucose 109 H Calcium 9.0 (2) Acute appendicitis with localized peritonitis Appendicitis abscess presence: without abscess Appendicitis gangrene presence: unspecified whether gangrene present Appendicitis perforation presence: unspecified whether perforation present Qualified Code(s): K35.30 - Acute appendicitis with localized peritonitis, without perforation or gangrene
[2022-11-12] MEDS: LOSARTAN POTASSIUM 50 MG TAB PO SCH (14:00)
[2022-11-12] MEDS ORDERED: MELATONIN 3 MG TAB PO PRN (21:08)
[2022-11-13] MEDS: PIPERACILLIN/TAZOBACTAM 4.5 GM in DEXTROSE 5% 100 ML IV SCH (04:56)
[2022-11-13] MEDS: LACTATED RINGER'S 1,000 ML IV SCH (04:57)
[2022-11-13] MEDS: hydrALAZINE HCL 20 MG/ML VIAL IV PRN (08:11)
[2022-11-13] MEDS: LOSARTAN POTASSIUM 50 MG TAB PO SCH (08:12)
[2022-11-13 09:39] LABS: Estimated Average Glucose 117 mg/dl; Hemoglobin A1C 5.7 % (4.5-5.6)
--- NOTE | 2022-11-13 09:42 | Surgery Progress Note ---
Date of Service November 13, 2022 Assessment & Plan (1) Acute appendicitis with localized peritonitis: Plan: POD#4 lap appendectomy for perforated appendicitis Patient feeling well. tolerating diet. pain controlled. + bowel function incisions c/d/i. MATTIE drain seroang- will remove today He is stable for discharge to home from our standpoint, will discuss with medicine recommendations for HTN meds upon dispo home on course of oral abx to complete f/u in clinic with Dr. Bray in 1 week along with his PCP for ongoing BP monitoring Admission and Anticipated Discharge Date Admission Date: November 09, 2022 Subjective Patient reports feeling well. Tolerating some regular food, but our hospital food is not appetizing to him. No nausea/vomiting. Is passing flatus/BMs. Pain controlled Physical Exam Physical Exam: awake/alert, no distress Respiratory: normal respiratory effort Gastrointestinal (Abdomen): Inspection/Auscultation: + abdominal surgical i ncision (c/d/i no infection) and + abdominal surgical drain present (serosangenous) Percussion/Palpation: abdomen soft; abdomen nontender Results & Data Vital Signs (Past 12 Hours) Vital Signs Temp Pulse Resp BP BP Pulse Ox O2 Del Method 11/13/22 07:07 36.7 C 90 18 164/99 H 97 Room Air 11/12/22 23:56 155/85 H 11/12/22 22:52 173/104 H PG Care Time/CCT Total # of Minutes Spent Total Time Spent with Patient: Total time spent is greater than 50% in coordination of care (as documented) at patient's floor/unit and/or counseling patient: Coding Level of Care Code 18975 Post Operative Follow-Up Diagnoses Acute appendicitis with localized peritonitis K35.30 Appendicitis abscess presence: without abscess Appendicitis gangrene presence: unspecified whether gangrene present Appendicitis perforation presence: unspecified whether perforation present (1) Acute appendicitis with localized peritonitis Appendicitis abscess presence: without abscess Appendicitis gangrene presence: unspecified whether gangrene present Appendicitis perforation presence: unspecified whether perforation present Qualified Code(s): K35.30 - Acute appendicitis with localized peritonitis, without perforation or gangrene
[2022-11-13] MEDS ORDERED: oxyCODONE HCL IR 5 MG TAB (IMMEDIATE RELEASE) PO PRN ×2 (11:01)
--- NOTE | 2022-11-13 18:16 | Hospitalist Progress Note ---
Date of Service November 13, 2022 Assessment & Plan (1) HTN (hypertension): (2) Acute appendicitis with localized peritonitis: (3) EVON (acute kidney injury): (4) HLD (hyperlipidemia): Plan HTN: -discussed different first line medications for HTN -will start the pt on losartan 50mg daily (starting today) -will adjust the dose depending on how pt response -A1C in the morning --5.7 -- However if the BP improves (closer to the goal: ~130/80) after losartan dose pt can be discharged (tonight) with PCP follow up within 1 week -Blood pressure remains on the upper side but stable to be discharged -Advised to have a follow-up with the PCP and recheck of the blood pressure -Patient remains asymptomatic and reassured about the blood pressure Acute perforated appendicitis s/p laparoscopic removal: -pt is recovering well -Cr is back to normal range and hgb is stable -pain management per primary team -Weight he will be discharged this afternoon EVON: -resolved HLD: -recent LDL was 138 - diet controlled Discussed with the patient and the in detail Admission and Anticipated Discharge Date Admission Date: November 09, 2022 Subjective 11/13/2022 The patient was seen and examined in medical floor He is a status post appendectomy and noted to have high blood pressure Denies any symptoms Will be discharged home by the primary this afternoon Review of Systems Review of Systems: All systems reviewed are unremarkable except as noted below Physical Exam Physical Exam: Lying in bed comfortably Constitutional: well developed, well nourished and + obese; not ill appearing Eyes: PERRL, conjunctivae normal, anicteric sclerae ENMT: external ear and nose normal, oropharynx normal Neck: trachea midline, no thyromegaly Respiratory: no respiratory distress Auscultation: lungs clear to auscultation bilaterally and + diminished lung sounds Cardiovascular: Rate/Rhythm: regular rate and regular rhythm; not tachycardic Heart Sounds: normal S1 and normal S2; no abnormal opening sounds Gastrointestinal (Abdomen): Inspection/Auscultation: normal bowel sounds; abdomen not distended Percussion/Palpation: + abdomen tender and abdomen soft Musculoskeletal: No acute arthritis involving any joint Neurologic: normal touch/pain/proprioception and moves all extremities; no focal motor deficits Psychiatric: A+Ox3, euthymic affect Lymphatic: no cervical or axillary lymphadenopathy Results & Data Results & Data Vital Signs (Past 12 Hours) Vital Signs Temp Pulse Resp BP BP Pulse Ox O2 Del Method 11/13/22 11:49 36.7 C 90 18 164/99 H 155/85 H 97 11/13/22 07:07 36.7 C 90 18 164/99 H 97 Room Air (2) Acute appendicitis with localized peritonitis Appendicitis abscess presence: without abscess Appendicitis gangrene presence: unspecified whether gangrene present Appendicitis perforation presence: unspecified whether perforation present Qualified Code(s): K35.30 - Acute appendicitis with localized peritonitis, without perforation or gangrene
--- NOTE | 2022-11-15 14:50 | Discharge Summary ---
Date of Service November 13, 2022 Principal Diagnosis perforated acute appendicitis sepsis with EVON HTN Discharge Exam awake/alert, no distress Respiratory normal respiratory effort Gastrointestinal (Abdomen) Inspection/Auscultation: + abdominal surgical incision (c/d/i no infection) and + abdominal surgical drain present (serosangenous) Percussion/Palpation: abdomen soft; abdomen nontender Discharge Data Allergies Allergy/AdvReac Type Severity Reaction Status Date / Time No Known Drug Allergies AdvReac Verified 11/09/22 12:35 Consultations 11/12/22 12:25 Consult Hospitalist Routine Procedures Performed Operation Date: 11/09/22 17:45 Actual Procedures p Laparoscopic Appendectomy(Not Applicable) - Shaheed Bray, DO, FACS Ordered Studies 04 11:23 CT abd pelvis wo con Stat Hospital Course (1) Acute appendicitis with localized peritonitis: This is a 37y M who presented to the [facility] ED on 4/6/ with complaints of abdominal pain. Work up with a CT a/p revealed evidence of acute appendicitis with evidence of associated small bowel obstruction. Labs were significant for WBC 17.9, Cr 2.3. The patient was made NPO with IVF and started on IV abx. He was booked for the OR. He underwent a laparoscopic appendectomy on 4// with Dr. Bray. Intraop findings revealed perforated appendicitis. The patient recovered in the PACU and was transferred to the med/surg unit in stable conditi on with an NGT, IVF, MATTIE drain, terry, and prn IV pain meds. On POD#[address] Terry catheter was removed. He remained on IV abx while in house. Activity encouraged. On POD#2 NGT was removed as he started passing flatus. Diet advanced to clear liquids. POD#3 patient's diet advanced to full liquids without issues. Remained on IV abx. He had some issues with HTN and the hospitalists were consulted. They started him on daily losartan 50mg and was prescribed this for home. He was instructed to follow up with his PCP in 1 week for follow up. On POD#4 diet advanced to low fiber. He reported + bowel function. Pain controlled on an oral regimen. MATTIE drain remained serosangeneous and was removed. WBC and Cr downtrended to 9 and 0.96 respectively. He was afebrile. Patient was deemed stable for discharge to home on a course of oral abx, and instructions to follow up with Dr. Bray in clinic within 1 weeks time. (2) Sepsis with acute renal failure: (3) HTN (hypertension): Total Time Total Time Spent Total Time Spent (In Minutes): 15 Discharge Plan Discharge Items Patient Disposition: Home - Self-Care Reason For Visit: PERFORATED APPENDICITIS WITH SBO Discharge Diagnosis: perforated appendicitis Activity: Per Instructions section Lifting: No more than 10 pounds Bathing Comment: may shower; no soaking in tubs/pools x2 weeks Exercise/Sports: Wait until after follow-up appointment Driving/Machine Use: no driving while taking narcotics for pain Non-emergency contact: Surgeon Call non-emergency contact if: you have any medication questions, your symptoms worsen, your pain is not controlled, your pain is concerning for you, you have a fever, your temperature is above 101.5, your wound has increased redness, your wound has increased drainage and your wound pain has increased Follow-up/Referrals: Shaheed Bray DO, FACS [Physician] - 11/23/22 9:15 am Carlos Lynch PA-C [Primary Care Provider] - 11/16/22 9:00 am (within one week for HTN Please arrive 15 min early to appointment) Diet: Low Fiber Addtl Attending Provider Instructions: You may keep a dry dressing over the drain site and change daily with dry gauze and tape until healed. Please complete the full course of antibiotic prescribed to you You should remain on a low fiber diet over the next couple of weeks Do not take plain Tylenol while you are taking the narcotic Percocet for pain. They both contain Acetaminophen and you should not exceed >3grams of Acetaminophen within a 24hour time period. You have elevated blood pressure while you were admitted to the hospital. You have been started on a new medication called Losartan which is a once daily pill. Please follow up with your PCP within 1 week of discharge to discuss your hospitalization and for ongoing monitoring of your blood pressure. Pending Studies at Discharge: Yes Studies:: surgical pathology Stand-Alone Forms: My [employer], Work/School Release, Smoking Cessation Medications and DC Order Prescriptions: New oxycodone-acetaminophen [Percocet] 5-325 mg tablet 1 - 2 tab PO .q4-6h PRN (Reason: pain, for initial therapy, max 6 tabs per day) Qty: 15 0RF amoxicillin-pot clavulanate 875-125 mg tablet 1 tab PO BID Qty: 20 0RF losartan 50 mg tablet 50 mg PO DAILY Qty: 30 0RF Discharge Orders: Discharge Order (Routine); Ordered 11/13/22 Ordered By: Joycelyn Black/Other Patient Handouts: Amoxicillin/Clavulanate Oral Tablet, Oxycodone/Acetaminophen Oral Tablet, After an Appendectomy, Appendectomy Lap Dc, Blood Pressure Check Steps Admission Data Admit Date/Time: 11/09/22 15:56 Attending Provider: Shaheed Bray Admit Provider: Shaheed Bray Primary Care Provider: Carlos Lynch Other Providers: Romi Kwok ; Anahi Stephen I. ; Britt Bustos ; Akilah Vieyra ; Linda Aguilera ; Alicia Pineda ; Ale Clinton ; Claudio Bass ; Zachary Salcedo ; Levar Bangura ; Evelin Stevens ; Renato Stacy ; Rere Ortiz ; Mady Maciel ; Anushka Stringer ; Marcelo Mcmullen ; Georgiana Lynch ; Ashly Fischer ; aFtmata Osorio ; Beth Chirinos I. ; Federico Mendoza ; Randee Hargrove ; Niurka Ambrocio ; Jamaal Moreau ; Waldo Jarrett ; Darren Jeong ; Lazaro Dawson ; Simone Contreras ; Sarah Cordon Other Interventions: Discharge Summary Assessment (RN) Last Done: 11/13/22 11:49 Coding Level of Care Code 63577 IN/OBS DISCH 30 MIN/LESS Diagnoses Acute appendicitis with localized peritonitis K35.30 Appendicitis abscess presence: without abscess Appendicitis gangrene presence: unspecified whether gangrene present Appendicitis perforation presence: unspecified whether perforation present Sepsis with acute renal failure A41.9; R65.20; N17.9 HTN (hypertension) I10
== END 2022-11-13 12:49 | disposition home or self-care (01) | DRG 853 ==
LOC: ED 10:20 → OR 13:05 → 3E 15:56